=== PATIENT | male | born 1965 | race Caucasian/White ===

== ENCOUNTER → 2020-05-13 | Outpatient (CLI) | payer OTHER, SELFPAY | LOC: SLEEP 19:52 | PROVIDERS: ATTEND Otolaryngology | DX: G47.33 Obstructive sleep apnea (adult) (pediatric) (principal) | CPT/HCPCS: 95810 ==

== ENCOUNTER → 2020-06-10 | Outpatient (CLI) | payer SELFPAY, OTHER | LOC: SLEEP 19:42 | PROVIDERS: ATTEND Otolaryngology | DX: G47.33 Obstructive sleep apnea (adult) (pediatric) (principal); Z11.59 Encounter for screening for other viral diseases | CPT/HCPCS: 95811; U0002 ==